=== PATIENT | female | born 1985 | race Two or more races ===

== ENCOUNTER 2018-08-15 23:48 | Emergency (ER) | payer BC, OTHER ==
[~2018-08-15] VITALS: Ht 165.1 cm; Wt 68.0 kg
[2018-08-15 23:50] VITALS: BP 122/76
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
--- NOTE | 2018-08-16 01:11 | NUR ---
PD AT BEDSIDE
--- NOTE | 2018-08-16 01:37 | NUR ---
AT BEDSIDE FOR EVAL
--- NOTE | 2018-08-16 02:04 | NUR ---
RADIOLOGY AT BEDSIDE FOR XRAY
--- NOTE | 2018-08-16 02:34 | NUR ---
PT TAKEN TO RADIOLOGY VIA [facility]
[2018-08-16] MEDS ORDERED: HYDROCODONE/APAP 5/325MG 1 EACH TABLET PO ONE (03:30)
[2018-08-16] MEDS ORDERED: IBUPROFEN 600 MG TABLET PO ONE ×2 (03:30→03:34)
[2018-08-16] MEDS ORDERED: HYDROCODONE/APAP 5/325MG 1 EACH TABLET ONE (03:34)
--- NOTE | 2018-08-16 03:37 | NUR ---
WASTED 1 TABLET OF NORCO 3-325 WITH FLACO ALEJANDRO
--- NOTE | 2018-08-16 03:37 | NUR ---
Patient discharged to home in stable condition. Written and verbal after care instructions given. Patient verbalizes understanding of instruction.
--- NOTE | 2018-08-16 03:37 | NUR ---
PT REFUSED NORCO 5-325 TABLET
== END 2018-08-16 03:48 | disposition home or self-care (01) ==
LOC: ER 23:50
DX: S13.4XXA Sprain of ligaments of cervical spine, initial encounter (principal); S39.012A Strain of muscle, fascia and tendon of lower back, initial encounter; S46.811A Strain of other muscles, fascia and tendons at shoulder and upper arm level, right arm, initial encounter; S39.81XA Other specified injuries of abdomen, initial encounter; V49.49XA Driver injured in collision with other motor vehicles in traffic accident, initial encounter; Y93.89 Activity, other specified; Y92.413 State road as the place of occurrence of the external cause; Y99.8 Other external cause status
CPT/HCPCS: 71100; 72125; 73030; 74176; 99284; L0172